=== PATIENT | male | born 1945 | race Caucasian/White ===

== ENCOUNTER → 2016-07-29 | Outpatient (CLI) | payer MEDICARE, BC ==
[~2016-07-29] MED LIST: BENTYL10 M1 PO; CEPHALEXIN500 M2 PO; FLOMAX0.4 MG PO; HYDROCHLOROTHIA1 T15 PO; KEFLEX250 M1 PO; LEVOTHYROXIN0.125 MG PO; MELOXICAM7.5 MG PO; METFORMIN HCL500 M2 PO; NORCO 325 MG-51 TAB PO; PERCOCET 325 MG1 TA2 PO; RANITIDINE150 MG PO; SPIRIVA INH IH; ST. JOSEPH81 M2 PO; TOPROL XL 25MG25 MG PO; TUMERIC PO
== END ==
LOC: LAB 08:16
DX: R73.02 Impaired glucose tolerance (oral) (principal); N40.0 Benign prostatic hyperplasia without lower urinary tract symptoms; I10 Essential (primary) hypertension; E03.4 Atrophy of thyroid (acquired)

== ENCOUNTER → 2016-08-16 | Day surgery (SDC) | payer MEDICARE, BC | LOC: MSO 07:56 | DX: Z12.11 Encounter for screening for malignant neoplasm of colon (principal); D12.3 Benign neoplasm of transverse colon; K57.30 Diverticulosis of large intestine without perforation or abscess without bleeding; I10 Essential (primary) hypertension; E11.8 Type 2 diabetes mellitus with unspecified complications; Z79.4 Long term (current) use of insulin; Z79.84 Long term (current) use of oral hypoglycemic drugs | CPT/HCPCS: 00810; A4649; J7030 ==

== ENCOUNTER 2016-12-22 22:41 | Emergency (ER) | payer MEDICARE, BC ==
[~2016-12-22] VITALS: Ht 193 cm; Wt 122.7 kg
[~2016-12-22 22:41] MED LIST changes: -FLOMAX0.4 MG PO; -KEFLEX250 M1 PO; -PERCOCET 325 MG1 TA2 PO; -TUMERIC PO
[2016-12-22] MEDS ORDERED: TUMERIC PO (22:54)
[2016-12-23] MEDS ORDERED: KEFLEX250 M1 PO (01:57)
[2016-12-23] MEDS ORDERED: FLOMAX0.4 MG PO (01:57)
[2016-12-23] MEDS ORDERED: PERCOCET 325 MG1 TA2 PO (01:58)
[2016-12-23 02:41] VITALS: BP 125/76
== END 2016-12-23 02:41 | disposition home or self-care (01) ==
LOC: ED 22:41
DX: N20.2 Calculus of kidney with calculus of ureter (principal); N39.0 Urinary tract infection, site not specified; Z87.442 Personal history of urinary calculi; E11.9 Type 2 diabetes mellitus without complications; I10 Essential (primary) hypertension; J44.9 Chronic obstructive pulmonary disease, unspecified; Z87.891 Personal history of nicotine dependence
CPT/HCPCS: J0696; J1885; J2405; J7030

== ENCOUNTER 2017-06-04 18:44 | Emergency (ER) | payer MEDICARE, BC ==
[~2017-06-04 18:44] MED LIST changes: +FLOMAX0.4 MG PO; +KEFLEX250 M1 PO; +PERCOCET 325 MG1 TA2 PO; +TUMERIC PO
[2017-06-04 19:44] LABS: HEMATOCRIT 48.5 % (42.0-52.0); MEAN CELL VOLUME 94 fl (78-100); MEAN CORPUSCULAR HEMOGLOBIN 33 pg (27-31); MEAN CORPUSCULAR HGB CONC 35 g/dL (33-37); PLATELET COUNT 144 K/mm3 (130-400); RED BLOOD COUNT 5.18 M/mm3 (4.20-5.60); RED CELL DISTRIBUTION WIDTH 12.2 % (11.5-14.5); WHITE BLOOD COUNT 8.5 K/mm3 (4.8-10.8)
[2017-06-04 19:54] LABS: ALBUMIN 3.6 g/dL (3.5-5.0); BUN/CREATININE RATIO 10.7 (6.0-26.0); CALCIUM 8.7 mg/dL (8.4-10.2); POTASSIUM 4.3 mmol/L (3.6-5.0); TOTAL PROTEIN 6.9 g/dL (6.3-8.2)
[2017-06-04 20:01] LABS: LYMPHOCYTE 9 % (20-51); MONOCYTE 9 % (3-10); NEUTROPHILS 82 % (42-75)
[2017-06-04 21:11] LABS: URINE APPEARANCE CLOUDY; URINE BILIRUBIN NEGATIVE (NEGATIVE); URINE BLOOD TRACE (NEGATIVE); URINE COLOR YELLOW; URINE KETONE NEGATIVE (NEGATIVE); URINE LEUKOCYTE ESTERASE NEGATIVE (NEGATIVE); URINE MUCUS PRESENT (NOT PRESENT); URINE NITRATE NEGATIVE (NEGATIVE); URINE PROTEIN(semi-quant) NEGATIVE (NEGATIVE); URINE UROBILINOGEN NORMAL (NORMAL)
[2017-06-04] MEDS ORDERED: PROAIR HFA0.09 MG/AC IH (22:14)
[2017-06-04] MEDS ORDERED: GUAIFEN-CODEIN118 ML PO (22:14)
[2017-06-04] MEDS ORDERED: CEFDINIR300 MG PO (22:14)
[2017-06-04] MEDS ORDERED: PREDNISONE20 M1 PO (22:14)
[2017-06-04 22:48] VITALS: BP 113/74
== END 2017-06-04 22:48 | disposition home or self-care (01) ==
LOC: ED 18:44
PROVIDERS: Family Medicine
DX: J44.1 Chronic obstructive pulmonary disease with (acute) exacerbation (principal); E11.9 Type 2 diabetes mellitus without complications; I10 Essential (primary) hypertension; Z87.891 Personal history of nicotine dependence; Z79.82 Long term (current) use of aspirin; Z79.84 Long term (current) use of oral hypoglycemic drugs
CPT/HCPCS: J0456; J0696; J2930; J7050

== ENCOUNTER → 2017-06-13 | Outpatient (CLI) | payer MEDICARE, BC ==
[2017-06-04 22:48] VITALS: BP 113/74
[~2017-06-13] MED LIST changes: +CEFDINIR300 MG PO; +GUAIFEN-CODEIN118 ML PO; +PREDNISONE20 M1 PO; +PROAIR HFA0.09 MG/AC IH
[2017-06-13 15:07] LABS: HEMATOCRIT 51.6 % (42.0-52.0); HEMOGLOBIN 17.7 g/dL (13.5-18.0); MEAN CELL VOLUME 94 fl (78-100); MEAN CORPUSCULAR HEMOGLOBIN 32 pg (27-31); MEAN CORPUSCULAR HGB CONC 34 g/dL (33-37); MEAN PLATELET VOLUME 10.7 fl (7.4-10.4); PLATELET COUNT 221 K/mm3 (130-400); RED BLOOD COUNT 5.49 M/mm3 (4.20-5.60); RED CELL DISTRIBUTION WIDTH 12.5 % (11.5-14.5); WHITE BLOOD COUNT 14.8 K/mm3 (4.8-10.8)
[2017-06-13 15:44] LABS: LYMPHOCYTE 11 % (20-51); NEUTROPHILS 86 % (42-75)
[2017-06-13 15:45] LABS: MONOCYTE 3 % (3-10)
== END ==
LOC: RAD 14:50
PROVIDERS: Nurse Practitioner Family
DX: R05 Cough (principal); R53.81 Other malaise; Z87.898 Personal history of other specified conditions

== ENCOUNTER → 2018-09-03 | Outpatient (CLI) | payer MEDICARE, BC ==
[~2018-09-03] VITALS: Ht 193 cm; Wt 126.8 kg
[2018-09-03 12:30] VITALS: BP 119/75
[2018-09-03 13:28] LABS: ALBUMIN 4.1 g/dL (3.5-5.0); CALCIUM 9.3 mg/dL (8.4-10.2); POTASSIUM 4.8 mmol/L (3.6-5.0); TOTAL PROTEIN 7.5 g/dL (6.3-8.2)
[2018-09-03 13:42] LABS: EOS # 0.1 (0.04-0.40); EOS % 1.6 % (0.0-4.0); HEMOGLOBIN 17.1 g/dL (13.5-18.0); LYMPH# 2.4 (1.50-4.00); MEAN CELL VOLUME 94 fl (78-100); MEAN CORPUSCULAR HEMOGLOBIN 32 pg (27-31); MEAN CORPUSCULAR HGB CONC 34 g/dL (33-37); MEAN PLATELET VOLUME 11.4 fl (7.4-10.4); MONO # 0.7 (0.20-0.80); NEU # 5.5 (1.40-6.50); PLATELET COUNT 196 K/mm3 (130-400); RED BLOOD COUNT 5.34 M/mm3 (4.20-5.60); RED CELL DISTRIBUTION WIDTH 12.5 % (11.5-14.5); WHITE BLOOD COUNT 8.9 K/mm3 (4.8-10.8)
== END ==
LOC: AMSURD 11:38
PROVIDERS: Family Medicine
DX: Z01.812 Encounter for preprocedural laboratory examination (principal); E66.9 Obesity, unspecified; R73.02 Impaired glucose tolerance (oral); E07.89 Other specified disorders of thyroid; I10 Essential (primary) hypertension

== ENCOUNTER 2019-03-26 10:10 | Emergency (ER) | payer MEDICARE, BC ==
[~2019-03-26] VITALS: Wt 117.1 kg
[~2019-03-26 10:10] MED LIST changes: +ASPIRIN E.C. 8181 MG PO; -LEVOTHYROXIN0.125 MG PO; +LEVOTHYROXIN0.137 MG PO; -ST. JOSEPH81 M2 PO
[2019-03-26] MEDS ORDERED: GLUCOPHAGE PO (10:27)
[2019-03-26 10:59] LABS: EOS # 0.2 (0.04-0.40); EOS % 1.3 % (0.0-4.0); HEMATOCRIT 48.3 % (42.0-52.0); HEMOGLOBIN 17.1 g/dL (13.5-18.0); LYMPH# 2.4 (1.50-4.00); MEAN CELL VOLUME 92 fl (78-100); MEAN CORPUSCULAR HEMOGLOBIN 33 pg (27-31); MEAN CORPUSCULAR HGB CONC 35 g/dL (33-37); MEAN PLATELET VOLUME 10.9 fl (7.4-10.4); MONO # 0.8 (0.20-0.80); NEU # 7.9 (1.40-6.50); PLATELET COUNT 203 K/mm3 (130-400); RED BLOOD COUNT 5.23 M/mm3 (4.20-5.60); RED CELL DISTRIBUTION WIDTH 12.1 % (11.5-14.5); WHITE BLOOD COUNT 11.3 K/mm3 (4.8-10.8)
[2019-03-26 11:05] LABS: ALBUMIN 3.7 g/dL (3.4-4.8); POTASSIUM 4.1 mmol/L (3.5-5.1)
[2019-03-26 11:06] LABS: CALCIUM 9.1 mg/dL (8.3-10.5)
[2019-03-26 11:23] LABS: TROPONIN-I 0.03 ng/mL (<0.030)
[2019-03-26] MEDS ORDERED: PERCOCET 325 MG1 TA2 PO (15:28)
[2019-03-26] MEDS ORDERED: CIPRO 500MG TA500 MG PO (17:07)
[2019-03-26 17:10] VITALS: BP 124/78
== END 2019-03-26 17:16 | disposition home or self-care (01) ==
LOC: ED 10:10
PROVIDERS: Nurse Practitioner Primary Care
DX: K81.0 Acute cholecystitis (principal); E11.9 Type 2 diabetes mellitus without complications; I10 Essential (primary) hypertension; K21.9 Gastro-esophageal reflux disease without esophagitis; J44.9 Chronic obstructive pulmonary disease, unspecified; Z79.84 Long term (current) use of oral hypoglycemic drugs; Z98.890 Other specified postprocedural states; Z88.1 Allergy status to other antibiotic agents; Z88.2 Allergy status to sulfonamides; Z79.82 Long term (current) use of aspirin
CPT/HCPCS: J1885; Q9967

== ENCOUNTER → 2019-03-28 | Outpatient (CLI) | payer MEDICARE, BC ==
[2019-03-26 17:10] VITALS: BP 124/78
[~2019-03-28] MED LIST changes: +CIPRO 500MG TA500 MG PO; +GLUCOPHAGE PO
== END ==
LOC: RAD 08:00
DX: K76.0 Fatty (change of) liver, not elsewhere classified (principal); K81.9 Cholecystitis, unspecified; K82.8 Other specified diseases of gallbladder

== ENCOUNTER 2019-09-16 14:46 | Emergency (ER) | payer MEDICARE, BC ==
[~2019-09-16] VITALS: Ht 193 cm; Wt 118.2 kg
[2019-09-16 15:36] LABS: HEMATOCRIT 51.5 % (42.0-52.0); HEMOGLOBIN 18.1 g/dL (13.5-18.0); MEAN CELL VOLUME 93 fl (78-100); MEAN CORPUSCULAR HEMOGLOBIN 33 pg (27-31); MEAN CORPUSCULAR HGB CONC 35 g/dL (33-37); MEAN PLATELET VOLUME 10.9 fl (7.4-10.4); PLATELET COUNT 179 K/mm3 (130-400); RED BLOOD COUNT 5.56 M/mm3 (4.20-5.60); RED CELL DISTRIBUTION WIDTH 13.2 % (11.5-14.5); WHITE BLOOD COUNT 19.3 K/mm3 (4.8-10.8)
[2019-09-16 15:50] LABS: SODIUM 132 mmol/L (136-145)
[2019-09-16 15:51] LABS: CALCIUM 8.7 mg/dL (8.3-10.5)
[2019-09-16 15:52] LABS: ALBUMIN 3.8 g/dL (3.4-4.8)
[2019-09-16 15:53] LABS: TOTAL PROTEIN 7.2 g/dL (6.2-8.1)
[2019-09-16 15:54] LABS: CARBON DIOXIDE 19 mmol/L (23-31); GLUCOSE 289 mg/dL (75-110); TOTAL BILIRUBIN 1.3 mg/dL (0.2-1.2)
[2019-09-16 15:58] LABS: AST-SGOT 17 U/L (5-34)
[2019-09-16 15:59] LABS: ALT/SGPT 21 U/L (0-55); LYMPHOCYTE 5 % (20-51); MONOCYTE 11 % (3-10); NEUTROPHILS 80 % (42-75)
[2019-09-16 16:07] LABS: TROPONIN-I < 0.03 ng/mL (<0.030)
[2019-09-16 16:40] LABS: URINE APPEARANCE CLOUDY; URINE COLOR YELLOW
[2019-09-16 16:41] LABS: URINE BILIRUBIN NEGATIVE (NEGATIVE); URINE BLOOD TRACE (NEGATIVE); URINE KETONE NEGATIVE (NEGATIVE); URINE LEUKOCYTE ESTERASE NEGATIVE (NEGATIVE); URINE NITRATE NEGATIVE (NEGATIVE); URINE PROTEIN(semi-quant) 1+ mg/dL (NEGATIVE); URINE UROBILINOGEN NORMAL (NORMAL)
[2019-09-16] MEDS ORDERED: TIROSINT13 MC1 PO (16:43)
[2019-09-16] MEDS ORDERED: OMEPRAZOLE40 MG PO (16:45)
[2019-09-16 17:56] VITALS: BP 106/41
== END 2019-09-16 18:20 | disposition short-term general hospital (02) ==
LOC: ED 14:46
PROVIDERS: Nurse Practitioner
DX: J44.1 Chronic obstructive pulmonary disease with (acute) exacerbation (principal); Z79.82 Long term (current) use of aspirin; Z79.84 Long term (current) use of oral hypoglycemic drugs; Z87.891 Personal history of nicotine dependence; Z90.89 Acquired absence of other organs
CPT/HCPCS: A4216; J0696; J2930; J7030

== ENCOUNTER → 2019-09-24 | Outpatient (CLI) | payer MEDICARE, BC ==
[2019-09-16 17:56] VITALS: BP 106/41
[~2019-09-24] MED LIST changes: +OMEPRAZOLE40 MG PO; +TIROSINT13 MC1 PO
[2019-09-24 14:42] LABS: EOS # 0.4 (0.04-0.40); EOS % 3.8 % (0.0-4.0); HEMATOCRIT 42.3 % (42.0-52.0); HEMOGLOBIN 14.6 g/dL (13.5-18.0); LYMPH# 2.5 (1.50-4.00); MEAN CELL VOLUME 94 fl (78-100); MEAN CORPUSCULAR HEMOGLOBIN 32 pg (27-31); MEAN CORPUSCULAR HGB CONC 35 g/dL (33-37); MONO # 0.9 (0.20-0.80); NEU # 6.1 (1.40-6.50); PLATELET COUNT 237 K/mm3 (130-400); RED CELL DISTRIBUTION WIDTH 12.8 % (11.5-14.5); WHITE BLOOD COUNT 10.1 K/mm3 (4.8-10.8)
[2019-09-24 14:52] LABS: ALBUMIN 3.2 g/dL (3.4-4.8); POTASSIUM 4.2 mmol/L (3.5-5.1)
[2019-09-24 14:53] LABS: CALCIUM 8.4 mg/dL (8.3-10.5)
[2019-09-24 14:54] LABS: TOTAL PROTEIN 6.4 g/dL (6.2-8.1)
[2019-09-24 14:56] LABS: TOTAL BILIRUBIN 0.6 mg/dL (0.2-1.2)
== END ==
LOC: LAB 14:30
PROVIDERS: Family Medicine
DX: I12.9 Hypertensive chronic kidney disease with stage 1 through stage 4 chronic kidney disease, or unspecified chronic kidney disease (principal); N18.3 Chronic kidney disease, stage 3 (moderate); E03.9 Hypothyroidism, unspecified; R73.02 Impaired glucose tolerance (oral)

== ENCOUNTER → 2019-10-24 | Outpatient (CLI) | payer MEDICARE, BC | LOC: RAD 15:09 | DX: S49.91XA Unspecified injury of right shoulder and upper arm, initial encounter (principal); R07.9 Chest pain, unspecified ==

== ENCOUNTER 2019-12-11 11:40 | Emergency (ER) | payer MEDICARE, BC ==
[2019-12-11] MEDS ORDERED: GLUCOPHAGE PO (12:42)
[2019-12-11] MEDS ORDERED: GABAPENTIN TAB600 MG PO (12:43)
[2019-12-11] MEDS ORDERED: PROAIR HFA0.09 MG/AC IH (12:43)
[2019-12-11] MEDS ORDERED: RT SPIRIVA INH18 MCG IH (12:44)
[2019-12-11] MEDS ORDERED: AUGMENTIN 875-1 EAC1 PO (14:08)
[2019-12-11 15:18] VITALS: BP 166/88
== END 2019-12-11 15:25 | disposition home or self-care (01) ==
LOC: ED 11:40
DX: S61.551A Open bite of right wrist, initial encounter (principal); E11.9 Type 2 diabetes mellitus without complications; Z23 Encounter for immunization; Z79.01 Long term (current) use of anticoagulants; Z79.84 Long term (current) use of oral hypoglycemic drugs; Z79.82 Long term (current) use of aspirin; Z87.891 Personal history of nicotine dependence; Z88.2 Allergy status to sulfonamides; Z88.8 Allergy status to other drugs, medicaments and biological substances; W55.51XA Bitten by raccoon, initial encounter
CPT/HCPCS: 90375

== ENCOUNTER → 2019-12-18 | Outpatient (CLI) | payer MEDICARE, BC ==
[2019-12-14 13:20] VITALS: BP 152/86
[~2019-12-18] MED LIST changes: +AUGMENTIN 875-1 EAC1 PO; +GABAPENTIN TAB600 MG PO; +RT SPIRIVA INH18 MCG IH
[2019-12-18 10:33] LABS: EOS # 0.1 (0.04-0.40); EOS % 1.9 % (0.0-4.0); HEMATOCRIT 50.3 % (42.0-52.0); LYMPH# 2.2 (1.50-4.00); MEAN CELL VOLUME 94 fl (78-100); MEAN CORPUSCULAR HEMOGLOBIN 32 pg (27-31); MEAN CORPUSCULAR HGB CONC 34 g/dL (33-37); MEAN PLATELET VOLUME 10.8 fl (7.4-10.4); MONO # 0.5 (0.20-0.80); NEU # 4.5 (1.40-6.50); PLATELET COUNT 178 K/mm3 (130-400); RED BLOOD COUNT 5.35 M/mm3 (4.20-5.60); RED CELL DISTRIBUTION WIDTH 12.3 % (11.5-14.5); WHITE BLOOD COUNT 7.4 K/mm3 (4.8-10.8)
[2019-12-18 10:37] LABS: POTASSIUM 4.6 mmol/L (3.5-5.1)
[2019-12-18 10:38] LABS: ALBUMIN 3.9 g/dL (3.4-4.8)
[2019-12-18 10:39] LABS: CALCIUM 9.3 mg/dL (8.3-10.5)
[2019-12-18 10:40] LABS: TOTAL PROTEIN 6.9 g/dL (6.2-8.1)
[2019-12-18 10:42] LABS: TOTAL BILIRUBIN 0.7 mg/dL (0.2-1.2)
== END ==
LOC: RAD 10:15
PROVIDERS: Family Medicine
DX: Z00.00 Encounter for general adult medical examination without abnormal findings (principal); E78.5 Hyperlipidemia, unspecified; R42 Dizziness and giddiness; R73.02 Impaired glucose tolerance (oral)

== ENCOUNTER 2020-01-08 09:35 | Outpatient (RCR) | payer MEDICARE, BC ==
[2019-12-14 13:20] VITALS: BP 152/86
--- NOTE | 2019-12-14 13:20 | NUR ---
Pt encouraged to wait 15 minutes after injections but refuses. Pt given copy of dates of remaining injections.
[2019-12-18 10:38] VITALS: BP 162/87
[2019-12-25 09:36] VITALS: BP 165/91
[~2020-01-08] VITALS: Ht 193 cm; Wt 114.2 kg
[2020-01-08 10:03] VITALS: BP 132/86
== END 2020-01-08 10:00 ==
LOC: AMSURD 09:35
DX: T14.8XXA Other injury of unspecified body region, initial encounter (principal)

== ENCOUNTER → 2020-01-16 | Outpatient (CLI) | payer MEDICARE, BC ==
[2020-01-08 10:03] VITALS: BP 132/86
[2020-01-16 08:38] LABS: EOS # 0.2 (0.04-0.40); EOS % 2.5 % (0.0-4.0); HEMATOCRIT 49.4 % (42.0-52.0); HEMOGLOBIN 17.1 g/dL (13.5-18.0); MEAN CELL VOLUME 92 fl (78-100); MEAN CORPUSCULAR HEMOGLOBIN 32 pg (27-31); MEAN CORPUSCULAR HGB CONC 35 g/dL (33-37); MEAN PLATELET VOLUME 10.4 fl (7.4-10.4); MONO # 0.5 (0.20-0.80); NEU # 5.4 (1.40-6.50); PLATELET COUNT 191 K/mm3 (130-400); RED BLOOD COUNT 5.39 M/mm3 (4.20-5.60); RED CELL DISTRIBUTION WIDTH 12.3 % (11.5-14.5); WHITE BLOOD COUNT 8.1 K/mm3 (4.8-10.8)
[2020-01-16 08:50] LABS: POTASSIUM 4.3 mmol/L (3.5-5.1)
[2020-01-16 08:51] LABS: CALCIUM 8.9 mg/dL (8.3-10.5)
[2020-01-16 08:52] LABS: TOTAL PROTEIN 7.3 g/dL (6.2-8.1)
[2020-01-16 08:54] LABS: TOTAL BILIRUBIN 0.5 mg/dL (0.2-1.2)
[2020-01-16 09:59] LABS: D-DIMER 0.9 mg/L FEU (0.15-0.50)
[2020-01-16 10:30] LABS: ALBUMIN 3.9 g/dL (3.4-4.8)
== END ==
LOC: VAS 08:11 → LAB 08:11 → RAD 08:30 → VAS 08:30
PROVIDERS: Family Medicine
DX: R22.42 Localized swelling, mass and lump, left lower limb (principal)

== ENCOUNTER → 2020-03-18 | Outpatient (CLI) | payer MEDICARE, BC ==
[2020-03-10 19:10] VITALS: BP 158/85
[2020-03-18 17:30] LABS: URINE APPEARANCE CLEAR; URINE BILIRUBIN NEGATIVE (NEGATIVE); URINE BLOOD NEGATIVE (NEGATIVE); URINE COLOR AMBER; URINE GLUCOSE NEGATIVE (NEGATIVE); URINE KETONE NEGATIVE (NEGATIVE); URINE LEUKOCYTE ESTERASE TRACE (NEGATIVE); URINE NITRATE NEGATIVE (NEGATIVE); URINE PROTEIN(semi-quant) TRACE mg/dL (NEGATIVE); URINE UROBILINOGEN NORMAL (NORMAL)
[2020-03-18 17:31] LABS: URINE MUCUS PRESENT (NOT PRESENT)
== END ==
LOC: LAB 16:54
PROVIDERS: Family Medicine
DX: N39.0 Urinary tract infection, site not specified (principal); E86.0 Dehydration

== ENCOUNTER → 2020-12-08 | Outpatient (CLI) | payer MEDICARE, BC ==
[2020-12-08 12:18] LABS: BASO # 0.06 (0.02-0.10); EOS # 0.19 (0.04-0.40); EOS % 1.9 % (0.0-4.0); HEMATOCRIT 51.5 % (42.0-52.0); HEMOGLOBIN 18.1 g/dL (13.5-18.0); LYMPH# 2.75 (1.50-4.00); MEAN CELL VOLUME 90 fl (78-100); MEAN CORPUSCULAR HEMOGLOBIN 32 pg (27-31); MEAN CORPUSCULAR HGB CONC 35 g/dL (33-37); MEAN PLATELET VOLUME 9.9 fl (7.4-10.4); NEU # 6.64 (1.40-6.50); PLATELET COUNT 194 K/mm3 (130-400); RED BLOOD COUNT 5.71 M/mm3 (4.20-5.60); RED CELL DISTRIBUTION WIDTH 11.8 % (11.5-14.5); WHITE BLOOD COUNT 10.3 K/mm3 (4.8-10.8)
[2020-12-08 12:40] LABS: POTASSIUM 4.3 mmol/L (3.5-5.1)
[2020-12-08 12:42] LABS: CALCIUM 8.9 mg/dL (8.3-10.5)
[2020-12-08 12:43] LABS: TOTAL PROTEIN 7.3 g/dL (6.2-8.1)
[2020-12-08 12:45] LABS: TOTAL BILIRUBIN 1.5 mg/dL (0.2-1.2)
== END ==
LOC: LAB 11:56
PROVIDERS: Family Medicine
DX: Z00.00 Encounter for general adult medical examination without abnormal findings (principal); E78.5 Hyperlipidemia, unspecified

== ENCOUNTER → 2022-01-11 | Outpatient (CLI) | payer MEDICARE, BC ==
[2022-01-11 11:39] LABS: BASO # 0.06 K/mm3 (0.02-0.10); EOS # 0.23 K/mm3 (0.04-0.40); EOS % 2.6 % (0.0-4.0); HEMATOCRIT 46.9 % (42.0-52.0); HEMOGLOBIN 16.2 g/dL (13.5-18.0); LYMPH# 1.93 K/mm3 (1.50-4.00); MEAN CELL VOLUME 95 fl (78-100); MEAN CORPUSCULAR HEMOGLOBIN 33 pg (27-31); MEAN CORPUSCULAR HGB CONC 35 g/dL (33-37); MEAN PLATELET VOLUME 10.6 fl (7.4-10.4); MONO # 0.51 K/mm3 (0.20-0.80); NEU # 5.97 K/mm3 (1.40-6.50); PLATELET COUNT 190 K/mm3 (130-400); RED BLOOD COUNT 4.95 M/mm3 (4.20-5.60); RED CELL DISTRIBUTION WIDTH 12.4 % (11.5-14.5); WHITE BLOOD COUNT 8.7 K/mm3 (4.8-10.8)
[2022-01-11 11:44] LABS: ALBUMIN 3.7 g/dL (3.4-4.8); POTASSIUM 3.9 mmol/L (3.5-5.1)
[2022-01-11 11:45] LABS: CALCIUM 8.8 mg/dL (8.3-10.5)
[2022-01-11 11:47] LABS: TOTAL PROTEIN 6.9 g/dL (6.2-8.1)
[2022-01-11 11:49] LABS: TOTAL BILIRUBIN 0.9 mg/dL (0.2-1.2)
[2022-01-11 23:34] LABS: HEPATITIS C ANTIBODY Negative (Negative)
[2022-01-18 06:21] LABS: VITAMIN B1 119 nmol/L (70-180)
== END ==
LOC: VAS 09:34 → LAB 09:34
PROVIDERS: Family Medicine
DX: Q21.1 Atrial septal defect (principal); E07.9 Disorder of thyroid, unspecified; J30.1 Allergic rhinitis due to pollen; J44.9 Chronic obstructive pulmonary disease, unspecified; K57.30 Diverticulosis of large intestine without perforation or abscess without bleeding; K58.9 Irritable bowel syndrome, unspecified; E53.9 Vitamin B deficiency, unspecified; I10 Essential (primary) hypertension; R73.02 Impaired glucose tolerance (oral)

== ENCOUNTER → 2022-01-13 | Outpatient (CLI) | payer MEDICARE, BC | LOC: RAD 07:08 | DX: K76.0 Fatty (change of) liver, not elsewhere classified (principal); R74.01 Elevation of levels of liver transaminase levels ==

== ENCOUNTER 2023-11-11 20:41 | Emergency (ER) | payer MEDICARE, BC ==
[~2023-11-11 20:41] MED LIST changes: +NS 500 ML IV ONE
[2024-01-02 11:02] LABS: BASO # 0.01 K/mm3 (0.02-0.10); HEMATOCRIT 47.8 % (42.0-52.0); HEMOGLOBIN 16.9 g/dL (13.5-18.0); LYMPH# 1.19 K/mm3 (1.50-4.00); MEAN CELL VOLUME 91 fl (78-100); MEAN CORPUSCULAR HEMOGLOBIN 32 pg (27-31); MEAN CORPUSCULAR HGB CONC 35 g/dL (33-37); MEAN PLATELET VOLUME 12.1 fl (7.4-10.4); MONO # 0.27 K/mm3 (0.20-0.80); NEU # 1.71 K/mm3 (1.40-6.50); PLATELET COUNT 53 K/mm3 (130-400); RED BLOOD COUNT 5.27 M/mm3 (4.20-5.60); RED CELL DISTRIBUTION WIDTH 12.6 % (11.5-14.5); WHITE BLOOD COUNT 3.2 K/mm3 (4.8-10.8)
[2024-01-02 11:09] LABS: ALBUMIN 3.9 g/dL (3.4-4.8); CALCIUM 8.6 mg/dL (8.3-10.5); TOTAL BILIRUBIN 0.7 mg/dL (0.2-1.2); TOTAL PROTEIN 7.1 g/dL (6.2-8.1)
== END 2023-11-11 23:40 | disposition other institution (70) ==
LOC: ED 20:41
PROVIDERS: Family Medicine
DX: R09.02 Hypoxemia (principal); R50.9 Fever, unspecified; R53.83 Other fatigue
CPT/HCPCS: J7040

== ENCOUNTER → 2023-11-27 | Outpatient (CLI) | payer MEDICARE, BC ==
[~2023-11-27] MED LIST changes: -NS 500 ML IV ONE
[2024-01-17 10:04] LABS: ANAPLASMA PHAGOCYTOPHILUM PCR AMS; EHRLICHIA CHAFFEENSIS AB PCR AMS; EHRLICHIA EWINGII/CANIS PCR AMS
== END ==
LOC: LAB 14:36
PROVIDERS: Family Medicine
DX: D69.6 Thrombocytopenia, unspecified (principal); W57.XXXA Bitten or stung by nonvenomous insect and other nonvenomous arthropods, initial encounter